=== PATIENT | male | born 1985 | race Asian ===

== ENCOUNTER 2023-02-12 07:48 | Emergency (ER) | payer OTHER ==
[~2023-02-12] VITALS: Ht 170.2 cm; Wt 75.0 kg
[2023-02-12 08:26] LABS: CLARITY URINE CLOUDY (CLEAR); COLOR URINE YELLOW (YELLOW); KETONES URINE 1+ (NEGATIVE); LEUKOCYTE ESTERASE URINE NEGATIVE (NEGATIVE); NITRITE URINE NEGATIVE (NEGATIVE); OCCULT BLOOD URINE TRACE (NEGATIVE); PH URINE 5.5 (4.5-8.0); PROTEIN URINE 2+ (NEGATIVE); SPECIFIC GRAVITY URINE 1.027 (1.005-1.030); UROBILINOGEN URINE 0.2 E.U./dL (0.2-1.0)
[2023-02-12 08:34] LABS: HEMATOCRIT 47.8 % (42.0-52.0); HEMOGLOBIN 16.5 g/dL (14.0-18.0); MEAN CORPUSCULAR HEMOGLOBIN 30.1 pg (28.0-32.0); MEAN CORPUSCULAR VOLUME 87.4 fL (80.0-94.0); PLATELET 309 x1000/uL (130-400); RED BLOOD CELL COUNT 5.47 mill/uL (4.7-6.1); RED CELL DISTRIBUTION WIDTH 13.3 % (11.6-14.6)
[2023-02-12 08:42] LABS: CHLORIDE 104 mEq/L (98-107)
[2023-02-12] MEDS ORDERED: DICYCLOMINE 10 MG/5 ML ORAL SYR PO STA (09:49)
[2023-02-12] MEDS ORDERED: VISCOUS LIDOCAINE 2% 15 ML UDC PO STA (09:49)
[2023-02-12] MEDS ORDERED: MAGNESIUM/ALUMINUM HYDROXIDE/SIMETHICONE 30ML UDC PO STA (09:49)
[2023-02-12] MEDS ORDERED: FAMOTIDINE 20MG TABLET PO ONE (10:00)
[2023-02-12] MEDS ORDERED: HALOPERIDOL LACTATE 5MG/ML VIAL IM ONE (10:00)
[2023-02-12] MEDS ORDERED: FAMO-135 MT (11:45)
[2023-02-12] MEDS ORDERED: KETOROLAC 30MG/ML VIAL IV ONE (12:45)
[2023-02-12 13:23] VITALS: BP 147/73
== END 2023-02-12 13:42 | disposition home or self-care (01) ==
LOC: ER 08:09
DX: F12.188 Cannabis abuse with other cannabis-induced disorder (principal); R11.2 Nausea with vomiting, unspecified; R10.84 Generalized abdominal pain
CPT/HCPCS: 36415; 74176; 80053; 81003; 83690; 85027; 96372; 96374; 99285; J1630; J1885; Z7610